=== PATIENT | female | born 1990 | race African-American/Black ===

== ENCOUNTER 2018-05-17 19:31 | Emergency (ER) | payer MEDICAID ==
[~2018-05-17] VITALS: Ht 170.2 cm; Wt 82.1 kg
[2018-05-17 19:41] VITALS: BP 130/86
[2018-05-17 21:13] LABS: Urine Bacteria FEW /hpf (None Seen); Urine Blood Negative /uL (Negative); Urine Mucus FEW (None Seen); Urine Specific Gravity 1.022 (1.001-1.035); Urine WBC 2 /hpf (0 - 5)
== END 2018-05-17 23:00 | disposition left against medical advice (07) ==
LOC: ER 19:31
DX: N89.8 Other specified noninflammatory disorders of vagina (principal); Z53.21 Procedure and treatment not carried out due to patient leaving prior to being seen by health care provider
CPT/HCPCS: 81001